=== PATIENT | female | born 1990 | race Caucasian/White ===

== ENCOUNTER 2016-11-08 17:03 | Emergency (ER) | payer OTHER ==
[~2016-11-08] VITALS: Ht 175.3 cm; Wt 81.8 kg
[~2016-11-08 17:03] MED LIST: OXYC1TAB24 PO
[2016-11-08 17:11] VITALS: BP 119/66; PULSE 85; RESP 16; O2SAT 99
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
[2016-11-08] MEDS ORDERED: Dexamethasone Inj 10 MG in 0.9% Sodium Chloride-Pha MIX 50 ML IV ONE (20:15)
[2016-11-08] MEDS ORDERED: MetoCLOpramide 5 mg/mL 2 mL Inj IVPUSH ONE (20:15)
[2016-11-08] MEDS ORDERED: 0.9% Sodium Chloride 1,000 ML IV ONE (20:20)
--- NOTE | 2016-11-08 21:19 | DRSVH ---
PROCEDURE: CT BRAIN WITHOUT CONTRAST ([id number]) INDICATIONS: headache TECHNIQUE: Noncontrast 4.5 mm thick angled axial sections acquired from the foramen magnum to the vertex, with c oronal reformats. COMPARISON: None. FINDINGS: Image quality: Excellent. CSF spaces: Basal cisterns are patent. No extra-axial fluid collections. Ventricles are normal in size and shape. Brain: No midline shift. No intracranial masses or hemorrhage. [place]-white matter interface is norm al. Skull and face: Calvarium and visualized facial bones are intact, without suspicious lesions. Sinuses: Visualized sinuses and mastoids are clear. IMPRESSION: No acute intracranial disease process. Dictated by: Celina Astudillo MD, PhD on 11/08/2016 at 21:17 Approved by: Celina Astudillo MD, PhD on 11/08/2016 at 21:18
[2016-11-08 23:49] VITALS: BP 98/60; PULSE 61; RESP 16; O2SAT 95
== END 2016-11-08 23:39 | disposition home or self-care (01) ==
LOC: SED 17:03
DX: G43.909 Migraine, unspecified, not intractable, without status migrainosus (principal); Z87.891 Personal history of nicotine dependence
CPT/HCPCS: 70450; 96361; 96374; 96375; 99285; J1100; J1200; J1885; J2765; J7030